=== PATIENT | male | born 1990 | race Caucasian/White ===

== ENCOUNTER 2020-11-08 11:08 | Emergency (ER) | payer SELFPAY ==
--- NOTE | ~2020-11-08 | XR_ITS ---
EXAMINATION: XR hip RT min 2V DATE: 11/08/2020 12:04 INDICATION: Right hip pain. TECHNIQUE: 2 views of right hip were obtained. COMPARISON: None. FINDINGS: Bone alignment is normal. No fracture. Right hip joint space is normal. IMPRESSION: 1. Normal right hip. Reviewed, dictated and finalized at location A. IMPRESSION: 1. Normal right hip.
--- NOTE | ~2020-11-08 | XR_ITS ---
EXAMINATION: XR ankle RT min 3V DATE: 11/08/2020 12:05 INDICATION: Right ankle pain. TECHNIQUE: 4 views of right ankle were obtained. COMPARISON: None. FINDINGS: Bone alignment is normal. No fracture. Joint spaces are well maintained. There is an enthes ophyte at posterior aspect of calcaneal tuberosity. IMPRESSION: 1. No fracture. Reviewed, dictated and finalized at location A. IMPRESSION: 1. No fracture.
[2020-11-08 11:30] VITALS: BP 126/66; PULSE 75; RESP 18; TEMP 36.9; O2SAT 100
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
== END 2020-11-08 12:25 | disposition home or self-care (01) ==
PROVIDERS: Emergency Provider Nurse Practitioner
DX: M25.571 Pain in right ankle and joints of right foot (principal); M25.551 Pain in right hip; F31.9 Bipolar disorder, unspecified
CPT/HCPCS: 73502; 73610; 99214; G0463